=== PATIENT | female | born 1965 | race African-American/Black ===

== ENCOUNTER 2017-02-06 17:41 | Observation (INO) | payer OTHER ==
[~2017-02-06] VITALS: Ht 162.6 cm; Wt 89.4 kg
[2017-02-06] MEDS ORDERED: ASPIRIN 81MG TABLET PO STA (18:54)
[2017-02-06] MEDS ORDERED: CLONIDINE 0.2MG TABLET PO ONE (19:00)
[2017-02-06 19:26] LABS: BASOPHILS % 0.3 % (0.0-2.0); EOSINOPHILS % 2.1 % (0.0-5.0); HEMATOCRIT. 41.2 % (36.0-48.0); HEMOGLOBIN. 14.2 g/dL (12.0-16.0); LYMPHOCYTES % 36.2 % (20.0-50.0); MEAN CORPUSCULAR HEMOGLOBIN 29.8 pg (28.0-32.0); MEAN CORPUSCULAR VOLUME 86.7 fL (81.0-99.0); MONOCYTES % 6.9 % (2.0-8.0); NEUTROPHILS % 54.5 % (40.0-76.0); PLATELET 225 x1000/uL (130-400); RED BLOOD CELL COUNT 4.75 mill/uL (4.2-5.4); RED CELL DISTRIBUTION WIDTH 13.4 % (11.6-14.6)
[2017-02-06 19:34] LABS: CARBON DIOXIDE 27 mEq/L (21-32); CHLORIDE 98 mEq/L (98-107)
[2017-02-06 19:36] LABS: D-DIMER 0.47 mg/L FEU (<0.50); PARTIAL THROMBOPLASTIN TIME 24.3 sec (23.4-31.0); PROTHROMBIN TIME 9.9 sec (9.4-11.6)
[2017-02-06 19:39] LABS: TROPONIN I < 0.02 ng/mL (0.00-0.04)
[2017-02-06 22:08] LABS: *AMPHETAMINES SCREEN URINE NEGATIVE (NEGATIVE); *BARBITURATES SCREEN URINE NEGATIVE (NEGATIVE); *BENZODIAZEPINES SCREEN URINE NEGATIVE (NEGATIVE); *COCAINE SCREEN URINE NEGATIVE (NEGATIVE); CANNABINOID URINE SCREEN NEGATIVE (NEGATIVE); METHADONE URINE SCREEN NEGATIVE (NEGATIVE); OPIATES URINE SCREEN NEGATIVE (NEGATIVE); PHENCYCLIDINE URINE SCREEN NEGATIVE (NEGATIVE)
[2017-02-06] MEDS ORDERED: METO50TA5 PO (22:36)
[2017-02-06] MEDS ORDERED: METF500T4 PO (22:36)
[2017-02-06] MEDS ORDERED: ASPI-1159 PO (22:36)
[2017-02-06] MEDS ORDERED: ATOR20TA65 PO (22:36)
[2017-02-06] MEDS ORDERED: LOSA25TA12 PO (22:36)
[2017-02-06] MEDS ORDERED: FURO40TA5 PO (22:36)
[2017-02-06] MEDS ORDERED: HYDR-4134 PO (22:36)
[2017-02-06 22:37] VITALS: BP 180/83
[2017-02-06 22:43] VITALS: BP 180/83
[2017-02-06] MEDS ORDERED: INFLUENZA VIRUS VACCINE 0.5ML SYR IM ONE (22:45)
[2017-02-06] MEDS ORDERED: DEXTROSE 50% WATER 50ML SYRINGE IV PRN (23:00)
[2017-02-06] MEDS ORDERED: MORPHINE SULFATE 4 MG/ML CPJ (NOT FOR IM USE) IV PRN (23:00)
[2017-02-06] MEDS ORDERED: CLONIDINE 0.2MG TABLET PO PRN (23:00)
[2017-02-06] MEDS: HYDRALAZINE HCL 50MG TABLET PO SCH (23:06)
[2017-02-06] MEDS: LOSARTAN POTASSIUM 50 MG TABLET PO SCH (23:06)
[2017-02-07] VITALS (7 sets, daily range): BP systolic 139–167; BP diastolic 72–90
[2017-02-07] MEDS: HYDRALAZINE HCL 50MG TABLET PO SCH ×2 (05:07→14:25)
[2017-02-07] MEDS ORDERED: PANTOPRAZOLE 40MG DR TABLET PO SCH (07:40)
[2017-02-07] MEDS: LOSARTAN POTASSIUM 50 MG TABLET PO SCH (08:09)
[2017-02-07] MEDS: INSULIN LISPRO 100 UNITS/ML SUBCUT SCH ×2 (08:11→12:26)
[2017-02-07] MEDS: BLOOD SUGAR DIAGNOSTIC STRIP TEST SCH ×2 (08:17→12:25)
[2017-02-07] MEDS ORDERED: ASPIRIN 81MG EC TABLET PO SCH (09:00)
[2017-02-07] MEDS ORDERED: ENOXAPARIN 40MG/0.4ML SYR SUBCUT SCH (09:00)
== END 2017-02-07 15:30 | disposition home or self-care (01) ==
LOC: ER 17:41 → 7WST 20:51 → INTOOBSV 20:51 → EDBEDREQ 20:54 → EDBEDREQTM 20:54 → ENRESERV 20:56
PROVIDERS: ADMIT Internal Medicine; ATTEND Internal Medicine
DX: R07.89 Other chest pain (principal); I10 Essential (primary) hypertension; E11.9 Type 2 diabetes mellitus without complications; E78.00 Pure hypercholesterolemia, unspecified; Z79.899 Other long term (current) drug therapy; Z82.49 Family history of ischemic heart disease and other diseases of the circulatory system; Z83.3 Family history of diabetes mellitus
CPT/HCPCS: 36415; 71010; 80053; 80305; 82962; 83690; 84484; 85025; 85379; 85610; 85730; 90471; 93005; 96372; 99285; G0378; J1650; J1815; 90686

== ENCOUNTER 2017-12-12 06:44 | Inpatient (IN) | payer SELFPAY ==
[~2017-12-12] VITALS: Ht 162.6 cm; Wt 71.7 kg
[~2017-12-12 06:44] MED LIST: ASPI-1159 PO; ATOR20TA65 PO; FURO40TA5 PO; HYDR-4134 PO; LOSA25TA12 PO; METF500T6 PO; METO-539 PO
[2017-12-12] MEDS ORDERED: ALBUTEROL (0.083%) 2.5MG/3ML NEB HHN STA (07:12)
[2017-12-12 07:41] LABS: BASOPHILS % 0.8 % (0.0-2.0); EOSINOPHILS % 1.5 % (0.0-5.0); HEMATOCRIT. 40.8 % (36.0-48.0); HEMOGLOBIN. 13.8 g/dL (12.0-16.0); LYMPHOCYTES % 39.6 % (20.0-50.0); MEAN CORPUSCULAR HEMOGLOBIN 29.4 pg (28.0-32.0); MEAN CORPUSCULAR VOLUME 86.7 fL (81.0-99.0); MEAN PLATELET VOLUME 9.9 fl (7.4-10.4); MONOCYTES % 6.5 % (2.0-8.0); NEUTROPHILS % 51.6 % (40.0-76.0); PLATELET 241 x1000/uL (130-400); RED BLOOD CELL COUNT 4.71 mill/uL (4.2-5.4); RED CELL DISTRIBUTION WIDTH 14.1 % (11.6-14.6)
[2017-12-12] MEDS ORDERED: IPRATROPIUM BROMIDE (0.02%) 0.5MG/2.5ML NEB HHN ONE (07:45)
[2017-12-12 08:01] LABS: CHLORIDE 104 mEq/L (98-107)
[2017-12-12 08:15] LABS: D-DIMER 1.01 mg/L FEU (<0.50); PROTHROMBIN TIME 10.4 sec (9.4-11.6)
[2017-12-12] MEDS ORDERED: IOHEXOL-350 100 ML BOTTLE ONE (10:31)
[2017-12-12] MEDS ORDERED: FUROSEMIDE 20MG/2ML VIAL IVP NR (12:00)
[2017-12-12] MEDS ORDERED: DIPHENHYDRAMINE 50MG/ML VIAL IV PRN (14:00)
[2017-12-12] MEDS ORDERED: CLONIDINE 0.1MG TABLET PO PRN (14:00)
[2017-12-12] MEDS ORDERED: ONDANSETRON HCL 4MG/2ML VIAL IV PRN (14:00)
[2017-12-12] MEDS ORDERED: MAGNESIUM/ALUMINUM HYDROXIDE/SIMETHICONE 30ML UDC PO PRN (14:00)
[2017-12-12] MEDS ORDERED: HYDROCODONE/ACETAMINOPHEN 5/325MG TABLET PO PRN (14:00)
[2017-12-12] MEDS ORDERED: ACETAMINOPHEN 325MG TABLET PO PRN (14:00)
[2017-12-12] MEDS ORDERED: DEXTROSE 50% WATER 50ML SYRINGE IV PRN (14:00)
[2017-12-12] MEDS ORDERED: NA PHOS,M-B/NA PHOS,DI-BA ENEMA 118ML PR PRN (14:00)
[2017-12-12] MEDS ORDERED: ACETAMINOPHEN 650MG SUPP PR PRN (14:00)
[2017-12-12] MEDS ORDERED: IPRATROPIUM/ALBUTEROL 0.5-3(2.5)MG/3ML NEB INH PRN (14:00)
[2017-12-12 15:52] VITALS: BP 167/100
[2017-12-12] MEDS ORDERED: MEDICATION NOT ON FORMULARY EA (Losartan Potassium 1 TAB) PO SCH (16:00)
[2017-12-12] MEDS ORDERED: MEDICATION NOT ON FORMULARY EA (Aspirin (Aspirin Low Dose) 1 TAB) PO SCH (16:00)
[2017-12-12 16:20] LABS: BG BASE EXCESS 0.5 mmol/L (-2.0-2.0); BG CARBOXYHEMOGLOBIN 0.7 % (0.5-1.5); BG DEOXYHEMOGLOBIN 4.5 % (0.0-5.0); BG FRACTION INSPIRED OXYGEN 21; BG HCO3 ACT 24.8 mmol/L (22.0-26.0); BG METHEMOGLOBIN 0.2 % (0.0-1.5); BG OXYGEN SATURATION 95.5 % (92.0-98.5); BG OXYHEMOGLOBIN 94.6 % (94.0-97.0); BG PCO2 38.9 mmHg (35.0-45.0); BG PH 7.423 (7.350-7.450); BG PO2 78.1 mmHg (75.0-100.0); BG SAMPLE SITE RIGHT BRACHIAL; BG TOTAL HEMOGLOBIN 13.6 g/dL (12.0-18.0); BG VENT MODE ROOM AIR
[2017-12-12 16:37] VITALS: BP 167/100
[2017-12-12] MEDS ORDERED: MEDICATION NOT ON FORMULARY EA (Hydralazine Hcl 50 MG) PO SCH (17:00)
[2017-12-12] MEDS ORDERED: MEDICATION NOT ON FORMULARY EA (Metoprolol Tartrate 50 MG) PO SCH (17:00)
[2017-12-12] MEDS: BLOOD SUGAR DIAGNOSTIC STRIP TEST SCH ×2 (17:39→21:49)
[2017-12-12] MEDS: INSULIN LISPRO 100 UNITS/ML SUBCUT SCH ×2 (17:43→21:46)
[2017-12-12 20:00] VITALS: BP 141/76
[2017-12-12] MEDS: IPRATROPIUM/ALBUTEROL 0.5-3(2.5)MG/3ML NEB HHN SCH (21:30)
[2017-12-12] MEDS: ATORVASTATIN CALCIUM 20MG TABLET PO SCH (21:42)
[2017-12-12] MEDS: HYDRALAZINE HCL 50MG TABLET PO SCH (21:43)
[2017-12-12] MEDS: METOPROLOL TARTRATE 50MG TABLET PO SCH (21:44)
[2017-12-12] MEDS: ENOXAPARIN 30MG/0.3ML SYR SUBCUT SCH (21:48)
[2017-12-13] VITALS: BP 138/76
[2017-12-13] MEDS: IPRATROPIUM/ALBUTEROL 0.5-3(2.5)MG/3ML NEB HHN SCH ×3 (01:40→20:36)
[2017-12-13 02:19] LABS: CREATINE KINASE MB FRACTION 1.2 ng/mL (0.5-3.6)
[2017-12-13 04:00] VITALS: BP 135/74
[2017-12-13 06:48] LABS: BASOPHILS % 0.3 % (0.0-2.0); EOSINOPHILS % 1.7 % (0.0-5.0); HEMATOCRIT. 38.1 % (36.0-48.0); HEMOGLOBIN. 12.8 g/dL (12.0-16.0); LYMPHOCYTES % 33.8 % (20.0-50.0); MEAN CORPUSCULAR HEMOGLOBIN 29.2 pg (28.0-32.0); MEAN PLATELET VOLUME 9.1 fl (7.4-10.4); MONOCYTES % 7.6 % (2.0-8.0); NEUTROPHILS % 56.6 % (40.0-76.0); PLATELET 225 x1000/uL (130-400); RED BLOOD CELL COUNT 4.38 mill/uL (4.2-5.4); RED CELL DISTRIBUTION WIDTH 13.6 % (11.6-14.6)
[2017-12-13 06:59] LABS: CHLORIDE 101 mEq/L (98-107)
[2017-12-13 07:17] LABS: LDL CHOLESTEROL 105 mg/dL (5-100)
[2017-12-13 07:19] LABS: HDL CHOLESTEROL 57 mg/dL (40-59); T4 FREE 0.93 ng/dL (0.76-1.46)
[2017-12-13] MEDS: BLOOD SUGAR DIAGNOSTIC STRIP TEST SCH ×4 (07:20→21:23)
[2017-12-13 08:00] VITALS: BP 128/87
[2017-12-13] MEDS: LOSARTAN POTASSIUM 25 MG TABLET PO SCH (09:12)
[2017-12-13] MEDS: METOPROLOL TARTRATE 50MG TABLET PO SCH ×2 (09:12→21:22)
[2017-12-13] MEDS: FUROSEMIDE 40MG/4ML VIAL IV SCH (09:12)
[2017-12-13] MEDS: ASPIRIN 81MG EC TABLET PO SCH (09:12)
[2017-12-13] MEDS: ENOXAPARIN 30MG/0.3ML SYR SUBCUT SCH ×2 (09:13→21:29)
[2017-12-13] MEDS: INSULIN LISPRO 100 UNITS/ML SUBCUT SCH ×4 (09:21→21:30)
[2017-12-13 12:00] VITALS: BP 136/83
[2017-12-13] MEDS: HYDRALAZINE HCL 50MG TABLET PO SCH ×2 (14:18→21:21)
[2017-12-13 16:00] VITALS: BP 133/91
[2017-12-13 20:00] VITALS: BP_SYST 130; BP_SYST 135; BP_DIAS 80; BP_DIAS 81
[2017-12-13] MEDS: ATORVASTATIN CALCIUM 20MG TABLET PO SCH (21:22)
[2017-12-14] VITALS: BP 139/87
[2017-12-14] MEDS: IPRATROPIUM/ALBUTEROL 0.5-3(2.5)MG/3ML NEB HHN SCH ×4 (00:11→19:54)
[2017-12-14 04:00] VITALS: BP 131/71
[2017-12-14] MEDS: BLOOD SUGAR DIAGNOSTIC STRIP TEST SCH ×4 (06:41→21:24)
[2017-12-14] MEDS: HYDRALAZINE HCL 50MG TABLET PO SCH ×3 (06:46→21:23)
[2017-12-14 07:12] LABS: HEMATOCRIT 38.4 % (36.0-48.0); HEMOGLOBIN 13.1 g/dL (12.0-16.0); MEAN CORPUSCULAR HEMOGLOBIN 29.6 pg (28.0-32.0); MEAN CORPUSCULAR VOLUME 86.8 fL (81.0-99.0); PLATELET 225 x1000/uL (130-400); RED BLOOD CELL COUNT 4.43 mill/uL (4.2-5.4); RED CELL DISTRIBUTION WIDTH 13.6 % (11.6-14.6)
[2017-12-14] MEDS: INSULIN LISPRO 100 UNITS/ML SUBCUT SCH ×5 (07:50→21:49)
[2017-12-14] MEDS: FUROSEMIDE 40MG/4ML VIAL IV SCH (08:46)
[2017-12-14] MEDS: ASPIRIN 81MG EC TABLET PO SCH (08:46)
[2017-12-14] MEDS: METOPROLOL TARTRATE 50MG TABLET PO SCH ×2 (08:46→21:24)
[2017-12-14] MEDS: LOSARTAN POTASSIUM 25 MG TABLET PO SCH (08:46)
[2017-12-14] MEDS: ENOXAPARIN 30MG/0.3ML SYR SUBCUT SCH ×2 (08:52→21:23)
[2017-12-14 08:59] VITALS: BP_SYST 143; BP_SYST 158; BP_SYST 165; BP_DIAS 93; BP_DIAS 94; BP_DIAS 99
[2017-12-14 09:05] LABS: CHLORIDE 102 mEq/L (98-107)
[2017-12-14] MEDS ORDERED: POTASSIUM CHLORIDE 20MEQ TABLET SR PO NR (11:15)
[2017-12-14] MEDS ORDERED: FUROSEMIDE 40MG/4ML VIAL IVP NR (11:15)
[2017-12-14 12:11] VITALS: BP 128/80
[2017-12-14 17:33] VITALS: BP 134/79
[2017-12-14 20:00] VITALS: BP 150/84
[2017-12-14] MEDS ORDERED: ATORVASTATIN CALCIUM 20MG TABLET PO SCH (21:00)
[2017-12-14] MEDS: ATORVASTATIN CALCIUM 20MG TABLET PO SCH (21:24)
[2017-12-15] VITALS (8 sets, daily range): BP systolic 116–137; BP diastolic 69–94
[2017-12-15] MEDS: IPRATROPIUM/ALBUTEROL 0.5-3(2.5)MG/3ML NEB HHN SCH ×3 (01:10→15:30)
[2017-12-15] MEDS: BLOOD SUGAR DIAGNOSTIC STRIP TEST SCH ×2 (06:05→12:48)
[2017-12-15] MEDS: HYDRALAZINE HCL 50MG TABLET PO SCH ×2 (06:09→14:05)
[2017-12-15 06:21] LABS: CHLORIDE 103 mEq/L (98-107)
[2017-12-15] MEDS: INSULIN LISPRO 100 UNITS/ML SUBCUT SCH ×2 (07:46→12:50)
[2017-12-15] MEDS: ENOXAPARIN 30MG/0.3ML SYR SUBCUT SCH (08:41)
[2017-12-15] MEDS: METOPROLOL TARTRATE 50MG TABLET PO SCH (08:41)
[2017-12-15] MEDS: FUROSEMIDE 40MG/4ML VIAL IV SCH (08:41)
[2017-12-15] MEDS: LOSARTAN POTASSIUM 25 MG TABLET PO SCH (08:41)
[2017-12-15] MEDS: ASPIRIN 81MG EC TABLET PO SCH (08:41)
== END 2017-12-15 18:52 | disposition home or self-care (01) | DRG 194 ==
LOC: ER 06:44 → OBSVTOIN 11:53 → 6WST 11:53 → INTOOBSV 11:53 → EDBEDREQTM 11:55 → EDBEDREQ 11:55 → ENRESERV 13:02 → SUPCPDRO 13:50
PROVIDERS: ADMIT Internal Medicine; ATTEND Internal Medicine
DX: I11.0 Hypertensive heart disease with heart failure (principal); E11.65 Type 2 diabetes mellitus with hyperglycemia; E78.5 Hyperlipidemia, unspecified; E66.9 Obesity, unspecified; I50.23 Acute on chronic systolic (congestive) heart failure; R79.1 Abnormal coagulation profile; M19.90 Unspecified osteoarthritis, unspecified site; Z90.710 Acquired absence of both cervix and uterus; Z90.49 Acquired absence of other specified parts of digestive tract; Z98.51 Tubal ligation status; Z91.19 Patient's noncompliance with other medical treatment and regimen; Z79.82 Long term (current) use of aspirin; Z79.84 Long term (current) use of oral hypoglycemic drugs; Z79.899 Other long term (current) drug therapy; Z68.27 Body mass index [BMI] 27.0-27.9, adult
CPT/HCPCS: 36415; 36600; 71045; 71275; 80048; 80053; 80061; 82375; 82550; 82553; 82805; 82962; 83036; 83880; 84439; 84443; 84484; 85025; 85027; 85379; 85610; 93005; 93306; 93970; 94640; G0378; J1650; J1815; J1940; J7611; J7620; Q9967